=== PATIENT | male | born 1930 | race Caucasian/White ===

== ENCOUNTER 2018-01-25 02:05 | Emergency (ER) | payer MEDICARE, BC ==
--- NOTE | 2018-01-25 02:46 | ED ---
URI HPI - General Chief Complaint: Upper Respiratory Infection Stated Complaint: cough Time Seen by Provider: 01/25/18 02:18 Source: patient, family Mode of arrival: ambulatory Limitations: no limitations - History of Present Illness Initial Comments: 87-year-old male patient presents to the emergency department today for complaints of persistent cough and sore throat. Patient reports his symptoms started approximately 4 days ago and seem to be worsening. States he is coughing up clear sputum. He denies any chest pain or shortness of breath. Denies any fevers or chills. States he has been having some nasal drainage over the last couple of days. Denies any facial pressure or ear pain. Patient denies any recent rash, abdominal pain, nausea, vomiting, diarrhea, constipation , back pain, numbness, tingling, dizziness, weakness, hematuria, dysuria, urinary urgency, urinary frequency, headache, visual changes, or any other complaints. - Related Data Home Medications Medication Instructions Recorded Confirmed Metoprolol Succinate [Toprol XL] 25 mg PO BID 10/04/15 10/05/15 Simvastatin [Zocor] 40 mg PO HS 10/04/15 10/05/15 Aspirin EC [Ecotrin Low Dose] 81 mg PO DAILY 10/05/15 10/05/15 Hydrochlorothiazide [Hydrodiuril] 12.5 mg PO DAILY 10/05/15 10/05/15 Multivit-Min/FA/Lycopen/Lutein 1 tab PO DAILY 10/05/15 10/05/15 [Centrum Silver Tablet] Previous Rx's Medication Instructions Recorded Cefuroxime Axetil [Ceftin] 500 mg PO BID #20 tablet 10/08/15 Ensure 1 can PO BID-W/MEALS liquid 10/08/15 Azithromycin [Zithromax Z-pack] 0 mg PO DIRECTED #6 tab 01/25/18 Promethazine HCl/Codeine 5 ml PO BID #50 ml 01/25/18 [Prometh-Codein 6.25-10 mg/5 ml] Allergies Allergy/AdvReac Type Severity Reaction Status Date / Time No Known Allergies Allergy Verified 01/25/18 02:15 Review of Systems ROS Statement: Those systems with pertinent positive or pertinent negative responses have been documented in the HPI. ROS Other: All systems not noted in ROS Statement are negative. Past Medical History Past Medical History: Hyperlipidemia, Hypertension, Osteoarthritis (OA), Prostate Disorder Additional Past Medical History / Comment(s): straight cath's self 3-4 times a day for last 8 months secondary to urethral stricture. History of Any Multi-Drug Resistant Organisms: None Reported Past Surgical History: Unable to Obtain, Hernia Repair Additional Past Surgical History / Comment(s): Per Patient had surgery to widen urethra r/t inability to urinate, throat hernia repair, bilateral carotid surgery, colonoscopy about 4 years ago. Past Anesthesia/Blood Transfusion Reactions: No Reported Reaction Past Psychological History: No Psychological Hx Reported Smoking Status: Former smoker Past Alcohol Use History: Rare Past Drug Use History: None Reported - Past Family History Father Family Medical History: No Reported History (Father at age of 85 from old age) Mother Family Medical History: No Reported History (Mother at age of 91 from old age) Brother(s) Family Medical History: Coronary Artery Disease (CAD) (Patient has one brother with coronary artery bypass graft 2) Sister(s) Family Medical History: No Reported History (Patient has 2 sisters no major medical problems) General Exam Limitations: no limitations General appearance: alert, in no apparent distress, other (This is a well- developed, well-nourished elderly male patient in no acute distress. Vital signs upon presentation are temperature 98.5F, pulse 91, respirations 18, blood pressure 135/65, pulse ox 95% on room air.) Eye exam: Present: normal appearance, PERRL, EOMI. Absent: scleral icterus, conjunctival injection, periorbital swelling ENT exam: Present: normal exam, normal oropharynx, mucous membranes moist, TM's normal bilaterally Neck exam: Present: normal inspection. Absent: tenderness, meningismus, lymphadenopathy Respiratory exam: Present: normal lung sounds bilaterally, other (Cough noted during exam. No respiratory distress. No accessory muscle use.). Absent: respiratory distress, wheezes, rales, rhonchi, stridor Cardiovascular Exam: Present: regular rate, normal rhythm, normal heart sounds. Absent: systolic murmur, diastolic murmur, rubs, gallop, clicks GI/Abdominal exam: Present: soft, normal bowel sounds. Absent: distended, tenderness, guarding, rebound, rigid Neurological exam: Present: alert, oriented X3, CN II-XII intact Psychiatric exam: Present: normal affect, normal mood Skin exam: Present: warm, dry, intact, normal color. Absent: rash Course Vital Signs 01/25/18 01/25/18 02:11 02:27 Temperature 98.5 F Pulse Rate 91 Respiratory 18 17 Rate Blood Pressure 135/65 O2 Sat by Pulse 95 Oximetry Medical Decision Making - Medical Decision Making 87 year-old male patient presented to the emergency department today for evaluation of cough and sore throat. Physical examination is unremarkable. Lungs are clear to auscultation with good air movement. Patient exhibits no evidence of respiratory distress. Chest x-ray shows no acute cardiopulmonary process. Patient will be started on azithromycin for acute bronchitis and given cough medication promethazine with codeine. He is instructed to follow- up with his primary care physician for recheck in 1-2 days. Instructed to return here immediately for any new, worsening, or concerning symptoms. He verbalizes understanding and agrees with this plan. - Radiology Data Radiology results: report reviewed, image reviewed Two-view x-ray of the chest shows a heart is normal. Lungs are clear consolidation. There is no pleural effusion. Thoracic aorta is atheromatous. Heart size is normal. Bony thorax is intact. Impression by Dr. Mcclelland shows no active cardiopulmonary disease. There is clearing of small left pleural effusion compared to old exam. Disposition Clinical Impression: Acute bronchitis, Upper respiratory infection Disposition: HOME SELF-CARE Condition: Good Instructions: Upper Respiratory Infection (ED), Acute Bronchitis (ED) Additional Instructions: Take medications as directed. Follow-up with your primary care physician for a recheck in 1-2 days. Return here immediately for any new, worsening, or concerning symptoms. Prescriptions: Azithromycin [Zithromax Z-pack] 0 mg PO DIRECTED #6 tab Promethazine HCl/Codeine [Prometh-Codein 6.25-10 mg/5 ml] 5 ml PO BID #50 ml Referrals: Yon Kruger DO [Primary Care Provider] - 1-2 days Time of Disposition: 03:16
--- NOTE | 2018-01-25 03:03 | XR ---
EXAMINATION TYPE: XR chest 2V DATE OF EXAM: 01/25/2018 COMPARISON: NONE HISTORY: Chest pain TECHNIQUE: Frontal and lateral views of the chest are obtained. FINDINGS: Heart is normal. Lungs are clear of consolidation. There is no pleural effusion. Thoracic aorta is atheromatous. Heart size is normal. Bony thorax is intact. IMPRESSION: No active cardiopulmonary disease. There is clearing of small left pleural effusion comp ared to old exam.
[2018-01-25] MEDS ORDERED: PROMETHAZINE 6.25MG/5ML 147.5 MG/118 ML BOTTLE PO STA (03:13)
[2018-01-25] MEDS ORDERED: PROMETHAZ-COD 6.25-10 MG/5 ML 5 ML CUP PO STA (03:13)
[2018-01-25] MEDS ORDERED: AZITHROMYCIN 500 MG TAB PO STA (03:14)
[2018-01-25 03:21] VITALS: BP 155/71; PULSE 71; RESP 18; TEMP 97.8
== END 2018-01-25 03:23 | disposition home or self-care (01) ==
LOC: EC 02:05
DX: J20.9 Acute bronchitis, unspecified (principal); J06.9 Acute upper respiratory infection, unspecified; J90 Pleural effusion, not elsewhere classified; I70.0 Atherosclerosis of aorta; E78.5 Hyperlipidemia, unspecified; I10 Essential (primary) hypertension; M19.90 Unspecified osteoarthritis, unspecified site; Z87.891 Personal history of nicotine dependence; Z79.82 Long term (current) use of aspirin; Z79.899 Other long term (current) drug therapy
CPT/HCPCS: 71046; 99283

== ENCOUNTER 2020-07-30 02:18 | Observation (INO) | payer MEDICARE, BC ==
[2020-07-30] MEDS ORDERED: SODIUM CHLORIDE 0.9% 1,000 ML IV STA ×2 (02:44)
--- NOTE | 2020-07-30 02:50 | ED ---
General Adult HPI - General Source: patient, family, RN notes reviewed, old records reviewed Mode of arrival: wheelchair Limitations: no limitations <Yari Randall - Last Filed: 07/30/20 03:47> <Sidney Hilario - Last Filed: 07/30/20 04:39> - General Chief complaint: Dizziness Stated complaint: weakness Time Seen by Provider: 07/30/20 02:34 - History of Present Illness Initial comments: This Patient is a pleasant 89-year-old male who presents to the emergency department today with his for concern for weakness, some inability to stand and feeling fatigued. Patient reports that he had a TURP procedure yesterday by Dr. Ahmadi. He was started on antibiotic during this. Patient reports that he attempted to go to the bathroom due to straight cath himself this morning and almost passed out and was weak and his had helped him stand up. Patient states that he is having no chest pain or shortness of breath. He denies any back or abdominal pain. Patient states he's had no change in bowel habits. He denies room spinning or headache. (Yari Randall) - Related Data Home Medications Medication Instructions Recorded Confirmed Metoprolol Succinate [Toprol XL] 25 mg PO BID 10/04/15 10/05/15 Simvastatin [Zocor] 40 mg PO HS 10/04/15 10/05/15 Aspirin EC [Ecotrin Low Dose] 81 mg PO DAILY 10/05/15 10/05/15 Multivit-Min/FA/Lycopen/Lutein 1 tab PO DAILY 10/05/15 10/05/15 [Centrum Silver Tablet] hydroCHLOROthiazide [Hydrodiuril] 12.5 mg PO DAILY 10/05/15 10/05/15 Previous Rx's Medication Instructions Recorded Cefuroxime Axetil [Ceftin] 500 mg PO BID #20 tablet 10/08/15 Ensure 1 can PO BID-W/MEALS liquid 10/08/15 Azithromycin [Zithromax Z-pack] 0 mg PO DIRECTED #6 tab 01/25/18 Promethazine HCl/Codeine 5 ml PO BID #50 ml 01/25/18 [Prometh-Codein 6.25-10 mg/5 ml] Allergies Allergy/AdvReac Type Severity Reaction Status Date / Time No Known Allergies Allergy Verified 07/30/20 02:27 Review of Systems ROS Other: All systems not noted in ROS Statement are negative. <Yari Randall - Last Filed: 07/30/20 03:47> ROS Other: All systems not noted in ROS Statement are negative. <Sidney Hilario - Last Filed: 07/30/20 04:39> ROS Statement: Those systems with pertinent positive or pertinent negative responses have been documented in the HPI. Past Medical History Past Medical History: Hyperlipidemia, Hypertension, Osteoarthritis (OA), Prostate Disorder Additional Past Medical History / Comment(s): straight cath's self 3-4 times a day for last 8 months secondary to urethral stricture. History of Any Multi-Drug Resistant Organisms: None Reported Past Surgical History: Unable to Obtain, Hernia Repair Additional Past Surgical History / Comment(s): Per Patient had surgery to widen urethra r/t inability to urinate, throat hernia repair, bilateral carotid surgery, colonoscopy about 4 years ago. Past Anesthesia/Blood Transfusion Reactions: No Reported Reaction Past Psychological History: No Psychological Hx Reported Smoking Status: Never smoker Past Alcohol Use History: Rare Past Drug Use History: None Reported - Past Family History Father Family Medical History: No Reported History (Father at age of 85 from old age) Mother Family Medical History: No Reported History (Mother at age of 91 from old age) Brother(s) Family Medical History: Coronary Artery Disease (CAD) (Patient has one brother with coronary artery bypass graft 2) Sister(s) Family Medical History: No Reported History (Patient has 2 sisters no major medical problems) <Yari Randall - Last Filed: 07/30/20 03:47> General Exam Limitations: no limitations General appearance: alert, in no apparent distress Head exam: Present: atraumatic, normocephalic, normal inspection Eye exam: Present: normal appearance, PERRL, EOMI. Absent: scleral icterus, conjunctival injection, periorbital swelling ENT exam: Present: normal exam, mucous membranes moist Neck exam: Present: normal inspection. Absent: tenderness, meningismus, lymphadenopathy Respiratory exam: Present: normal lung sounds bilaterally. Absent: respiratory distress, wheezes, rales, rhonchi, stridor Cardiovascular Exam: Present: regular rate, normal rhythm, normal heart sounds. Absent: systolic murmur, diastolic murmur, rubs, gallop, clicks GI/Abdominal exam: Present: soft, normal bowel sounds. Absent: distended, tenderness, guarding, rebound, rigid Extremities exam: Present: normal inspection, full ROM, normal capillary refill. Absent: tenderness, pedal edema, joint swelling, calf tenderness Back exam: Present: normal inspection Neurological exam: Present: alert, oriented X3, CN II-XII intact Psychiatric exam: Present: normal affect, normal mood Skin exam: Present: warm, dry, intact, normal color. Absent: rash <Yari Randall - Last Filed: 07/30/20 03:47> - General Exam Comments Initial Comments: Patient is a pleasant 89-year-old male. Alert and oriented 3. at bedside. Appears in no acute distress. (Yari Randall) Course Vital Signs 07/30/20 02:21 Temperature 99.3 F Pulse Rate 94 Respiratory 18 Rate Blood Pressure 156/72 O2 Sat by Pulse 96 Oximetry Medical Decision Making - Lab Data Result diagrams: 07/30/20 02:53 07/30/20 02:53 - Radiology Data Radiology results: report reviewed <Yari Randall - Last Filed: 07/30/20 03:47> - Lab Data Result diagrams: 07/30/20 02:53 07/30/20 02:53 <Sidney Hilario - Last Filed: 07/30/20 04:39> - Medical Decision Making 89-year-old male presents to the ER today for concerns for weakness, his legs giving out on him. He is one-day post TURP procedure. Patient has no acute complaints of pain at this time. Lab work is pending. Discussed case with Dr. Hilario, whom is finishing care. (Yari Randall) I saw this patient in conjunction with the physician commercial lines assistant. I performed independent history and physical exam. Agree with case management. (Sidney Hilario) - Lab Data Lab Results 07/30/20 07/30/20 07/30/20 Range/Units 02:53 02:53 02:53 WBC 7.9 (3.8-10.6) k/uL RBC 4.16 L (4.30-5.90) m/uL Hgb 12.3 L (13.0-17.5) gm/dL Hct 37.8 L (39.0-53.0) % MCV 90.7 D (80.0-100.0) fL MCH 29.6 (25.0-35.0) pg MCHC 32.6 (31.0-37.0) g/dL RDW 13.5 (11.5-15.5) % Plt Count 214 (150-450) k/uL Neutrophils % 86 % Lymphocytes % 6 % Monocytes % 6 % Eosinophils % 0 % Basophils % 0 % Neutrophils # 6.8 (1.3-7.7) k/uL Lymphocytes # 0.5 L (1.0-4.8) k/uL Monocytes # 0.5 (0-1.0) k/uL Eosinophils # 0.0 (0-0.7) k/uL Basophils # 0.0 (0-0.2) k/uL PT 10.2 (9.0-12.0) sec INR 1.0 (<1.2) APTT 24.2 (22.0-30.0) sec Sodium (137-145) mmol/L Potassium (3.5-5.1) mmol/L Chloride (98-107) mmol/L Carbon Dioxide (22-30) mmol/L Anion Gap mmol/L BUN (9-20) mg/dL Creatinine (0.66-1.25) mg/dL Est GFR (CKD-EPI)AfAm (>60 ml/min/1.73 sqM) Est GFR (CKD-EPI)NonAf (>60 ml/min/1.73 sqM) Glucose (74-99) mg/dL Plasma Lactic Acid Pa (0.7-2.0) mmol/L Calcium (8.4-10.2) mg/dL Magnesium (1.6-2.3) mg/dL Total Bilirubin (0.2-1.3) mg/dL AST (17-59) U/L ALT (4-49) U/L Alkaline Phosphatase (38-126) U/L Troponin I (0.000-0.034) ng/mL Total Protein (6.3-8.2) g/dL Albumin (3.5-5.0) g/dL Urine Color Yellow Urine Appearance Turbid (Clear) Urine pH 6.0 (5.0-8.0) Ur Specific Addison 1.023 (1.001-1.035) Urine Protein 2+ H (Negative) Urine Glucose (UA) Negative (Negative) Urine Ketones 1+ H (Negative) Urine Blood Moderate H (Negative) Urine Nitrite Negative (Negative) Urine Bilirubin Negative (Negative) Urine Urobilinogen <2.0 (<2.0) mg/dL Ur Leukocyte Esterase Large H (Negative) Urine RBC 111 H (0-5) /hpf Urine WBC >182 H (0-5) /hpf Urine WBC Clumps Many H (None) /hpf Ur Squamous Epith Cells 1 (0-4) /hpf Urine Mucus Rare H (None) /hpf 07/30/20 07/30/20 07/30/20 Range/Units 02:53 02:53 02:53 WBC (3.8-10.6) k/uL RBC (4.30-5.90) m/uL Hgb (13.0-17.5) gm/dL Hct (39.0-53.0) % MCV (80.0-100.0) fL MCH (25.0-35.0) pg MCHC (31.0-37.0) g/dL RDW (11.5-15.5) % Plt Count (150-450) k/uL Neutrophils % % Lymphocytes % % Monocytes % % Eosinophils % % Basophils % % Neutrophils # (1.3-7.7) k/uL Lymphocytes # (1.0-4.8) k/uL Monocytes # (0-1.0) k/uL Eosinophils # (0-0.7) k/uL Basophils # (0-0.2) k/uL PT (9.0-12.0) sec INR (<1.2) APTT (22.0-30.0) sec Sodium 135 L (137-145) mmol/L Potassium 3.3 L (3.5-5.1) mmol/L Chloride 97 L (98-107) mmol/L Carbon Dioxide 32 H (22-30) mmol/L Anion Gap 6 mmol/L BUN 20 (9-20) mg/dL Creatinine 0.90 (0.66-1.25) mg/dL Est GFR (CKD-EPI)AfAm 88 (>60 ml/min/1.73 sqM) Est GFR (CKD-EPI)NonAf 76 (>60 ml/min/1.73 sqM) Glucose 154 H (74-99) mg/dL Plasma Lactic Acid Pa 1.3 (0.7-2.0) mmol/L Calcium 8.3 L (8.4-10.2) mg/dL Magnesium 1.8 (1.6-2.3) mg/dL Total Bilirubin 0.6 (0.2-1.3) mg/dL AST 19 (17-59) U/L ALT 9 (4-49) U/L Alkaline Phosphatase 74 (38-126) U/L Troponin I <0.012 (0.000-0.034) ng/mL Total Protein 6.8 (6.3-8.2) g/dL Albumin 3.6 (3.5-5.0) g/dL Urine Color Urine Appearance (Clear) Urine pH (5.0-8.0) Ur Specific Addison (1.001-1.035) Urine Protein (Negative) Urine Glucose (UA) (Negative) Urine Ketones (Negative) Urine Blood (Negative) Urine Nitrite (Negative) Urine Bilirubin (Negative) Urine Urobilinogen (<2.0) mg/dL Ur Leukocyte Esterase (Negative) Urine RBC (0-5) /hpf Urine WBC (0-5) /hpf Urine WBC Clumps (None) /hpf Ur Squamous Epith Cells (0-4) /hpf Urine Mucus (None) /hpf 07/30/20 03:24 EKG shows sinus rhythm normal EKG. Ventricular rate of 92 bpm. Intervals 184 ms. QRS duration is 86 most seconds. QT QTc is 344/425 ms. (Yari Randall) - Radiology Data Minimal subsegmental atelectasis compared old exam. Normal heart. (Yari Randall) Disposition <Yari Randall - Last Filed: 07/30/20 03:47> <Sidney Hilario - Last Filed: 07/30/20 04:39> Clinical Impression: UTI (urinary tract infection), Generalized weakness Disposition: ADMITTED IP TO THIS [facility] Condition: Fair Referrals: Yon Kruger DO [Primary Care Provider] - 1-2 days
[2020-07-30 03:20] LABS: Basophils % (A) 0 %; Eosinophils % (A) 0 %; HCT 37.8 % (39.0-53.0); HGB 12.3 gm/dL (13.0-17.5); Lymphocytes # (A) 0.5 k/uL (1.0-4.8); Lymphocytes % (A) 6 %; MCH 29.6 pg (25.0-35.0); MCHC 32.6 g/dL (31.0-37.0); Mean Platelet Volume 7.1; Monocytes # (A) 0.5 k/uL (0-1.0); Monocytes % (A) 6 %; Neutrophils # (A) 6.8 k/uL (1.3-7.7); Neutrophils % (A) 86 %; Platelet Count 214 k/uL (150-450); RBC 4.16 m/uL (4.30-5.90); RDW 13.5 % (11.5-15.5); WBC 7.9 k/uL (3.8-10.6)
[2020-07-30 03:23] LABS: MCV 90.7 fL (80.0-100.0)
[2020-07-30 03:25] LABS: Albumin 3.6 g/dL (3.5-5.0); Calcium 8.3 mg/dL (8.4-10.2); Magnesium 1.8 mg/dL (1.6-2.3); Potassium 3.3 mmol/L (3.5-5.1); Total Bilirubin 0.6 mg/dL (0.2-1.3); Total Protein 6.8 g/dL (6.3-8.2)
--- NOTE | 2020-07-30 03:25 | XR ---
EXAMINATION TYPE: XR chest 2V DATE OF EXAM: 07/30/2020 COMPARISON: 01/25/2018 HISTORY: Weakness TECHNIQUE: 2 views FINDINGS: There is some mild linear density at the lung bases consistent with minimal subsegmental at electasis. There is no pulmonary mass. Heart size is normal. There is no heart failure. There are no hilar masses. There are chest leads. IMPRESSION: Minimal subsegmental atelectasis appears new compared to old exam. Normal heart.
[2020-07-30 03:42] LABS: Partial Thromboplastin Time 24.2 sec (22.0-30.0); Prothrombin Time 10.2 sec (9.0-12.0)
[2020-07-30 04:12] LABS: Appearance,Urine Turbid (Clear); Bilirubin,Urine Negative (Negative); Blood,Urine Moderate (Negative); Color,Urine Yellow; Glucose,Urine (UA) Negative (Negative); Ketones,Urine 1+ (Negative); Leukocyte Esterase,Urine Large (Negative); Mucus,Urine Rare /hpf; Nitrite,Urine Negative (Negative); Protein,Urine 2+ (Negative); RBC,Urine 111 /hpf (0-5); Specific Gravity,Urine 1.023 (1.001-1.035); Squamous Epithelial Cell,Urine 1 /hpf (0-4); Urobilinogen,Urine <2.0 mg/dL (<2.0); WBC,Urine >182 /hpf (0-5)
[2020-07-30] MEDS ORDERED: NALOXONE 0.4 MG/ML 1 ML VIAL IV PRN (04:30)
[2020-07-30] MEDS ORDERED: LEVOFLOXACIN 750MG-D5W PMX 750 MG in DEXTROSE/WATER 1 150ML.BAG IVPB STA (04:37)
[2020-07-30] MEDS ORDERED: POTASSIUM CHLORIDE ER 20 MEQ TAB.ER PO STA (04:39)
[2020-07-30] MEDS: SODIUM CHLORIDE 0.9% 1,000 ML IV SCH ×2 (04:54→16:42)
[2020-07-30] MEDS: ACETAMINOPHEN TAB 325 MG TAB PO PRN (04:56)
[2020-07-30] MEDS ORDERED: ENSURE PO SCH (07:30)
[2020-07-30] MEDS: ASPIRIN 81 MG PO SCH (08:53)
[2020-07-30] MEDS: METOPROLOL SUCCINATE (ER) 25 MG TAB.ER.24H PO SCH ×2 (08:53→21:25)
[2020-07-30] MEDS: hydroCHLOROthiazide 12.5 MG CAP PO SCH (08:55)
[2020-07-30] MEDS ORDERED: hydroCHLOROthiazide 25 MG TAB PO SCH (09:00)
[2020-07-30] MEDS ORDERED: ONDANSETRON ODT 4 MG TAB PO PRN (12:01)
[2020-07-30] MEDS ORDERED: Potassium Replacement Protocol 1 EACH MISC MISCELLANE PRN (12:04)
[2020-07-30] MEDS ORDERED: Magnesium Replacement Protocol 1 EACH MISC MISCELLANE PRN (12:04)
[2020-07-30] MEDS ORDERED: PANTOPRAZOLE 40 MG/10 ML VIAL IVP SCH (12:15)
[2020-07-30] MEDS ORDERED: METOPROLOL SUCCINATE (ER) 50 MG TAB.ER.24H PO SCH (12:15)
--- NOTE | 2020-07-30 13:05 | P.HPIM ---
History of Present Illness H&P Date: 07/30/20 Chief Complaint: Weakness, hematuria This is an 89-year-old gentleman, recently underwent TURP procedure with Dr. Teresa, presented to the ER with near syncope, increased weakness, hematuria. Patient has been on antibiotics since urology procedure. Patient straight caths himself 3-4 times daily. Denies change in bowel habits. Denies nausea, vomiting, abdominal pain . Denies chills or fever .Denies chest pain, palpitations or shortness of breath. Denies lightheadedness, dizziness or focal deficits. Hemoglobin 12.3, baseline 13. Sodium 135, potassium 3.3, chloride 97, carbon dioxide 32, BUN 20, creatinine 0.9, magnesium 1.8, lactic acid 1.3. Troponin negative 1. UA reported urine WBC 182, leukocytes large, negative nitrates, moderate blood, 1+ ketones, 2+ protein. Urine culture pending. T-max 100.6.VSS, maintaining O2 sats in the high 90s on 2 L nasal cannula. Chest x- ray reporting new minimal subsegmental atelectasis. EKG reporting normal sinus rhythm. Review of Systems ROS Statement: Those systems with pertinent positive or pertinent negative responses have been documented in the HPI. ROS Other: All systems not noted in ROS Statement are negative. Past Medical History Past Medical History: Hyperlipidemia, Hypertension, Osteoarthritis (OA), Prostate Disorder, Thyroid Disorder Additional Past Medical History / Comment(s): straight cath's self 3-4 times a day for last 3-4 years secondary to urethral stricture. History of Any Multi-Drug Resistant Organisms: None Reported Past Surgical History: Unable to Obtain, Hernia Repair Additional Past Surgical History / Comment(s): Per Patient had surgery to widen urethra r/t inability to urinate. the following surgeries were from the previous documented history from 2014, but the patient denies: throat hernia repair, bilateral carotid surgery, colonoscopy Past Anesthesia/Blood Transfusion Reactions: No Reported Reaction Past Psychological History: No Psychological Hx Reported Smoking Status: Former smoker Past Alcohol Use History: Rare Past Drug Use History: None Reported - Past Family History Father Family Medical History: No Reported History Mother Family Medical History: No Reported History Brother(s) Family Medical History: Coronary Artery Disease (CAD) Sister(s) Family Medical History: No Reported History Medications and Allergies Home Medications Medication Instructions Recorded Confirmed Type Aspirin EC [Ecotrin Low Dose] 81 mg PO DAILY 10/05/15 07/30/20 History hydroCHLOROthiazide [Hydrodiuril] 12.5 mg PO DAILY 10/05/15 07/30/20 History Cyanocobalamin [Vitamin B-12] 500 mcg PO DAILY 07/30/20 07/30/20 History Levothyroxine Sodium [Synthroid] 50 mcg PO DAILY 07/30/20 07/30/20 History Metoprolol Succinate [Toprol XL] 25 mg PO BID 07/30/20 07/30/20 History Ondansetron Odt [Zofran Odt] 4 mg PO Q6H PRN 07/30/20 07/30/20 History Simvastatin [Zocor] 40 mg PO HS 07/30/20 07/30/20 History Sulfamethox-Tmp 800-160Mg [Bactrim 1 tab PO Q12HR 07/30/20 07/30/20 History DS 800-160 mg] Vit C/E/Zn/Coppr/Lutein/Zeaxan 1 cap PO BID 07/30/20 07/30/20 History [Preservision Areds 2 Softgel] Allergies Allergy/AdvReac Type Severity Reaction Status Date / Time No Known Allergies Allergy Verified 07/30/20 09:35 Physical Exam Vitals: Vital Signs Temp Pulse Pulse Resp BP BP Pulse Ox 07/30/20 08:39 99.6 F 78 18 115/68 97 07/30/20 05:51 98.7 F 77 18 106/62 97 07/30/20 04:58 97 07/30/20 04:38 100.6 F H 85 18 150/77 91 L 07/30/20 02:21 99.3 F 94 18 156/72 96 Intake and Output 07/29/20 07/30/20 07/30/20 22:59 06:59 14:59 Other: Voiding Method Self-Catheterization Self-Catheterization # Voids 0 Weight 70.307 kg PHYSICAL EXAM: VITAL SIGNS: As above GENERAL: Sitting up in bed, no acute distress HEENT: Conjunctivae normal. eyes normal. Oral mucosa moist NECK: No JVD. No thyroid enlargement. No LNs CARDIOVASCULAR: S1, S2 regular.. No murmur RESPIRATION: Breath sounds diminished in the bases. No rhonchi or crackles. No bronchial breathing. ABDOMEN: Soft, nontender . No guarding. no masses palpable. No ascites, No hepatosplenomegaly.Bowel sounds heard. LEGS: No edema. no swelling PSYCHIATRY: Alert and oriented X3, mood and affect normal. NERVOUS SYSTEM: Cranial N 2-12 grossly normal. Moves all 4 limbs. Diffuse weakness, No focal deficits. Strength and sensation grossly intact.. Skin: Warm and dry, no rash Lymphatic system. No LN neck axilla or groin. Results CBC & Chem 7: 07/30/20 02:53 07/30/20 02:53 Labs: Abnormal Lab Results - Last 24 Hours (Table) 07/30/20 07/30/20 07/30/20 Range/Units 02:53 02:53 02:53 RBC 4.16 L (4.30-5.90) m/uL Hgb 12.3 L (13.0-17.5) gm/dL Hct 37.8 L (39.0-53.0) % Lymphocytes # 0.5 L (1.0-4.8) k/uL Sodium 135 L (137-145) mmol/L Potassium 3.3 L (3.5-5.1) mmol/L Chloride 97 L (98-107) mmol/L Carbon Dioxide 32 H (22-30) mmol/L Glucose 154 H (74-99) mg/dL Calcium 8.3 L (8.4-10.2) mg/dL Urine Protein 2+ H (Negative) Urine Ketones 1+ H (Negative) Urine Blood Moderate H (Negative) Ur Leukocyte Esterase Large H (Negative) Urine RBC 111 H (0-5) /hpf Urine WBC >182 H (0-5) /hpf Urine WBC Clumps Many H (None) /hpf Urine Mucus Rare H (None) /hpf Microbiology - Last 24 Hours (Table) 07/30/20 02:53 Urine Culture - Preliminary Urine,Clean Catch Thrombosis Risk Factor Assmnt - Choose All That Apply Each Factor Represents 1 point: Swollen legs (current) Other Risk Factors: Yes Each Risk Factor Represents 3 Points: Age 75 years or older Other congenital or acquired thrombophilia - If yes, enter type in comment: No Thrombosis Risk Factor Assessment Total Risk Factor Score: 4 Thrombosis Risk Factor Assessment Level: Moderate Risk Assessment and Plan Assessment: Acute UTI with hematuria status post recent TURP, on antibiotics OP in a patient with history of urethral stricture, possibly related to self cathing, present on admission. Generalized weakness secondary to the above Hypoxic respiratory failure secondary to the above New minimal subsegmental atelectasis Hypokalemia Hypomagnesemia Chronic anemia of chronic kidney disease, stage II Hypertension Hyperlipidemia Hypothyroidism Plan: Continue on current medication regime ,monitoring and symptomatic treatment. IV fluid hydration, IV antibiotics. Cultures pending. PPI for GI prophylaxis. Compression stockings for DVT prophylaxis. Aggressive pulmonary toileting with incentive spirometer ordered. Urology consult in place with recommendations pending. The impression and plan of care has been dictated as directed. : I performed a history and examination of this patient, discussed the same with the dictator. I agree with the dictator's note ,documented as a scribe. Any additional findings or plans will be noted.
[2020-07-30] MEDS: LEVOTHYROXINE 50 MCG TAB PO SCH (13:51)
[2020-07-30 19:52] VITALS: RESP 16
[2020-07-30] MEDS ORDERED: NON FORMULARY DRUG (Simvastatin [Zocor] 80 MG Tablet) PO SCH (21:00)
[2020-07-30] MEDS ORDERED: ATORVASTATIN 20 MG TAB PO SCH (21:00)
[2020-07-30] MEDS: VIT A,C & E-LUTEIN-MINERALS 1 EACH TAB PO SCH (21:25)
[2020-07-31] MEDS: SODIUM CHLORIDE 0.9% 1,000 ML IV SCH ×2 (01:35→13:36)
[2020-07-31] MEDS ORDERED: LEVOFLOXACIN 750MG-D5W PMX 750 MG in DEXTROSE/WATER 1 150ML.BAG IVPB SCH (04:00)
[2020-07-31] MEDS: ACETAMINOPHEN TAB 325 MG TAB PO PRN (04:45)
[2020-07-31 05:47] LABS: Basophils % (A) 0 %; Eosinophils # (A) 0.1 k/uL (0-0.7); Eosinophils % (A) 1 %; HCT 32.8 % (39.0-53.0); HGB 10.7 gm/dL (13.0-17.5); Lymphocytes # (A) 0.5 k/uL (1.0-4.8); Lymphocytes % (A) 9 %; MCH 29.6 pg (25.0-35.0); MCHC 32.6 g/dL (31.0-37.0); MCV 90.8 fL (80.0-100.0); Monocytes # (A) 0.4 k/uL (0-1.0); Monocytes % (A) 7 %; Neutrophils # (A) 3.9 k/uL (1.3-7.7); Neutrophils % (A) 79 %; Platelet Count 170 k/uL (150-450); RBC 3.61 m/uL (4.30-5.90); RDW 13.4 % (11.5-15.5)
[2020-07-31] MEDS: LEVOTHYROXINE 50 MCG TAB PO SCH (05:55)
[2020-07-31 06:04] LABS: African American GFR (CKD) >90 (>60 ml/min/1.73 sqM); Anion Gap 3 mmol/L; Blood Urea Nitrogen 11 mg/dL (9-20); Calcium 7.7 mg/dL (8.4-10.2); Carbon Dioxide 29 mmol/L (22-30); Chloride 101 mmol/L (98-107); Glucose 122 mg/dL (74-99); Magnesium 1.6 mg/dL (1.6-2.3); Non-African American GFR(CKD) 90 (>60 ml/min/1.73 sqM); Potassium 3.5 mmol/L (3.5-5.1); Sodium 133 mmol/L (137-145)
[2020-07-31] MEDS ORDERED: PANTOPRAZOLE 40 MG TABLET PO SCH (07:30)
[2020-07-31] MEDS: ASPIRIN 81 MG PO SCH (08:36)
[2020-07-31] MEDS: METOPROLOL SUCCINATE (ER) 25 MG TAB.ER.24H PO SCH (08:36)
[2020-07-31] MEDS: VIT A,C & E-LUTEIN-MINERALS 1 EACH TAB PO SCH (08:36)
[2020-07-31] MEDS: hydroCHLOROthiazide 12.5 MG CAP PO SCH (08:37)
[2020-07-31] MEDS ORDERED: CYANOCOBALAMIN 500 MCG TAB PO SCH (09:00)
--- NOTE | 2020-07-31 13:39 | P.DS ---
Providers Date of admission: 07/30/20 04:30 Attending physician: Yon Kruger Consults: 07/30/20 04:31 Consult Physician Routine Consulting Provider: Otoniel Teresa Consult Reason/Comments: Your patient Do you want consulting provider notified?: Yes Primary care physician: Yon Kruger Hospital Course: Patient is admitted for generalized weakness, hematuria, fever patient was treated for urinary tract infection neurology evaluated the patient for further recommendations for them patient will be followed by urology as an outpatient. They cleared him for discharge. Patient is also hyponatremic secondary to hydrochlorothiazide patient blood pressure was extremely low on admission. Isn't labored elevated because of IV fluids. Because of hyponatremia patient is not a good candidate for hydrochlorothiazide patient may benefit from Norvasc if needed as an outpatient as of now patient is on very low-dose of hydrochlorothiazide which will be discontinued. Unfortunately patient was not evaluated by PT and OT, although upon brief for evaluation patient doesn't appear to need subacute rehabilitation patient will be arranged for home care and home rehabilitation along with a walker rather than a cane. PHYSICAL EXAMINATION: GENERAL: The patient is alert and oriented x3, not in any acute distress. Well developed, well nourished. HEENT: Pupils are round and equally reacting to light. EOMI. No scleral icterus. No conjunctival pallor. Normocephalic, atraumatic. No pharyngeal erythema. No thyromegaly. CARDIOVASCULAR: S1 and S2 present. No murmurs, rubs, or gallops. PULMONARY: Chest is clear to auscultation, no wheezing or crackles. ABDOMEN: Soft, nontender, nondistended, normoactive bowel sounds. No palpable organomegaly. MUSCULOSKELETAL: No joint swelling or deformity. EXTREMITIES: No cyanosis, clubbing, or pedal edema. NEUROLOGICAL: Gross neurological examination did not reveal any focal deficits. SKIN: No rashes. For rest of the medical problems and has physician course please refer to Dr. Kruger dictation for further details Patient Condition at Discharge: Fair Plan - Discharge Summary Discharge Rx Participant: No New Discharge Prescriptions: Discontinued hydroCHLOROthiazide [Hydrodiuril] 12.5 mg PO DAILY Sulfamethox-Tmp 800-160Mg [Bactrim DS 800-160 mg] 1 tab PO Q12HR No Action Aspirin EC [Ecotrin Low Dose] 81 mg PO DAILY Vit C/E/Zn/Coppr/Lutein/Zeaxan [Preservision Areds 2 Softgel] 1 cap PO BID Levothyroxine Sodium [Synthroid] 50 mcg PO DAILY Cyanocobalamin [Vitamin B-12] 500 mcg PO DAILY Metoprolol Succinate [Toprol XL] 25 mg PO BID Simvastatin [Zocor] 40 mg PO HS Ondansetron Odt [Zofran Odt] 4 mg PO Q6H PRN PRN Reason: Nausea Discharge Medication List Aspirin EC [Ecotrin Low Dose] 81 mg PO DAILY 10/05/15 [History] Cyanocobalamin [Vitamin B-12] 500 mcg PO DAILY 07/30/20 [History] Levothyroxine Sodium [Synthroid] 50 mcg PO DAILY 07/30/20 [History] Metoprolol Succinate [Toprol XL] 25 mg PO BID 07/30/20 [History] Ondansetron Odt [Zofran Odt] 4 mg PO Q6H PRN 07/30/20 [History] Simvastatin [Zocor] 40 mg PO HS 07/30/20 [History] Vit C/E/Zn/Coppr/Lutein/Zeaxan [Preservision Areds 2 Softgel] 1 cap PO BID 07/30/20 [History] Follow up Appointment(s)/Referral(s): Otoniel Teresa MD [STAFF PHYSICIAN] - 1 Week Yon Kruger DO [Primary Care Provider] - 3 Days Discharge Disposition: HOME SELF-CARE
[2020-07-31 15:04] VITALS: BP 141/65; PULSE 69; TEMP 98.1
== END 2020-07-31 15:31 | disposition home health service (06) ==
LOC: SUPCPDRO 02:18 → EC 02:18 → 1SOBS 04:30
PROVIDERS: ADMIT Family Medicine; ATTEND Family Medicine
DX: N39.0 Urinary tract infection, site not specified (principal); R31.9 Hematuria, unspecified; N35.919 Unspecified urethral stricture, male, unspecified site; J96.91 Respiratory failure, unspecified with hypoxia; E87.6 Hypokalemia; E83.42 Hypomagnesemia; N18.2 Chronic kidney disease, stage 2 (mild); I12.9 Hypertensive chronic kidney disease with stage 1 through stage 4 chronic kidney disease, or unspecified chronic kidney disease; D63.1 Anemia in chronic kidney disease; E03.9 Hypothyroidism, unspecified; E87.1 Hypo-osmolality and hyponatremia; T50.2X5A Adverse effect of carbonic-anhydrase inhibitors, benzothiadiazides and other diuretics, initial encounter; E78.5 Hyperlipidemia, unspecified; M19.90 Unspecified osteoarthritis, unspecified site; R55 Syncope and collapse; Z79.899 Other long term (current) drug therapy; Z79.82 Long term (current) use of aspirin; Z87.891 Personal history of nicotine dependence; Z79.890 Hormone replacement therapy; M79.89 Other specified soft tissue disorders; Z79.2 Long term (current) use of antibiotics; Z82.49 Family history of ischemic heart disease and other diseases of the circulatory system
CPT/HCPCS: 96361 ×2; 96366; 96365; 99285; 51702; 36415; 93005; 80053; 80048; 83605; 83735 ×2; 84484; 85025 ×2; 85610; 85730; 81001; 87040; 87086; 71046; G0378 ×2; J1956 ×2

== ENCOUNTER 2021-06-11 02:15 | Emergency (ER) | payer MEDICARE, BC ==
[2021-06-11 02:22] VITALS: BP 155/76; PULSE 56; RESP 20; TEMP 98
[2021-06-11] MEDS ORDERED: LIDOCAINE 1% INJ 10MG/ML (20 ML MDV) SQ ONE (02:50)
[2021-06-11] MEDS ORDERED: DIPH,PERTUS(ACELL)TETVAC-LF 0.5 ML VIAL IM ONE (02:50)
--- NOTE | 2021-06-11 02:50 | ED ---
Fall HPI - General Chief Complaint: Fall Stated Complaint: Fall, left arm lac Time Seen by Provider: 06/11/21 02:28 Source: patient Mode of arrival: ambulatory - History of Present Illness Initial Comments: Patient is an 89-year-old man who presents with complaint that he has lacerations to his left arm that have continued to bleed. He states that he was walking through his home and lost his balance and fell. He states that his left elbow struck a stereo cabinets, raking glass. Patient denies any foreign body sensation. Denies other injury. He has full range of motion and no weakness. Patient declined x-ray. Does not recall when his last tetanus shot was. Declined analgesia. Complaint: fall -: minutes(s) Fall From: standing When Fall Occurred: 1 hour [employer] Fall Witnessed: yes, by family Place Fall Occurred: home Loss of Consciousness: none Prolonged Down Time?: no Symptoms Prior to Fall: none Location - Extremities: Left: Elbow Severity: mild Quality: sharp Context: tripped/slipped - Related Data Home Medications Medication Instructions Recorded Confirmed Aspirin EC [Ecotrin Low Dose] 81 mg PO DAILY 10/05/15 07/30/20 Cyanocobalamin [Vitamin B-12] 500 mcg PO DAILY 07/30/20 07/30/20 Levothyroxine Sodium [Synthroid] 50 mcg PO DAILY 07/30/20 07/30/20 Metoprolol Succinate [Toprol XL] 25 mg PO BID 07/30/20 07/30/20 Ondansetron Odt [Zofran Odt] 4 mg PO Q6H PRN 07/30/20 07/30/20 Simvastatin [Zocor] 40 mg PO HS 07/30/20 07/30/20 Vit C/E/Zn/Coppr/Lutein/Zeaxan 1 cap PO BID 07/30/20 07/30/20 [Preservision Areds 2 Softgel] Previous Rx's Medication Instructions Recorded Cefuroxime Axetil [Ceftin] 500 mg PO BID 3 Days #6 tab 07/31/20 Allergies Allergy/AdvReac Type Severity Reaction Status Date / Time No Known Allergies Allergy Verified 06/11/21 02:20 Review of Systems ROS Statement: Those systems with pertinent positive or pertinent negative responses have been documented in the HPI. ROS Other: All systems not noted in ROS Statement are negative. Constitutional: Denies: fever, chills Respiratory: Denies: dyspnea Cardiovascular: Denies: chest pain, palpitations Skin: Reports: as per HPI, other (Lacerations) Neurological: Denies: weakness, numbness Hematological/Lymphatic: Denies: easy bleeding Past Medical History Past Medical History: Hyperlipidemia, Hypertension, Osteoarthritis (OA), Prostate Disorder, Thyroid Disorder Additional Past Medical History / Comment(s): straight cath's self 3-4 times a day for last 3-4 years secondary to urethral stricture. 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 the following surgeries were from the previous documented history from 2014, but the patient denies: throat hernia repair, bilateral carotid surgery, colonoscopy Past Anesthesia/Blood Transfusion Reactions: No Reported Reaction Past Psychological History: No Psychological Hx Reported Smoking Status: Former smoker Past Alcohol Use History: Rare Past Drug Use History: None Reported - Past Family History Father Family Medical History: No Reported History Mother Family Medical History: No Reported History Brother(s) Family Medical History: Coronary Artery Disease (CAD) Sister(s) Family Medical History: No Reported History General Exam Limitations: no limitations General appearance: alert, in no apparent distress Head exam: Present: atraumatic, normocephalic Respiratory exam: Present: normal lung sounds bilaterally. Absent: respiratory distress, wheezes, rales, rhonchi, stridor Cardiovascular Exam: Present: regular rate, normal rhythm, normal heart sounds Neurological exam: Absent: motor sensory deficit Skin exam: Present: warm, dry, normal color, other (Patient has 2 lacerations to the left elbow area. There is 1 to the lateral aspect of the arm approximately 2 cm in length. There is 1 near the olecranon, approximately 3 cm in length.) Course Vital Signs 06/11/21 02:20 Temperature 98.0 F Pulse Rate 56 L Respiratory 20 Rate Blood Pressure 155/76 O2 Sat by Pulse 99 Oximetry Procedures - Laceration Laceration #1 Consent Obtained: verbal consent Indication: laceration Site: upper extremity Size (cm): 2 Description: linear Depth: simple, single layer Anesthetic Used: lidocaine 1% Anesthesia Technique: local infiltration Type of Sutures: nylon Size of Sutures: 4-0 Number of Sutures: 2 Technique: simple, interrupted Patient Tolerated Procedure: well, no complications Laceration #2 Consent Obtained: verbal consent Indication: laceration Site: upper extremity Size (cm): 3 Description: linear Depth: simple, single layer Anesthetic Used: lidocaine 1% Anesthesia Technique: local infiltration Type of Sutures: nylon Size of Sutures: 4-0 Number of Sutures: 3 Technique: simple, interrupted Patient Tolerated Procedure: well, no complications Disposition Clinical Impression: Fall, Laceration Disposition: HOME SELF-CARE Condition: Good Instructions (If sedation given, give patient instructions): Laceration (ED), Fall Prevention for Older Adults (ED) Is patient prescribed a controlled substance at d/c from ED?: No Referrals: Yon Kruger DO [Primary Care Provider] - 1-2 days
== END 2021-06-11 04:14 | disposition home or self-care (01) ==
LOC: EC 02:15
DX: S51.012A Laceration without foreign body of left elbow, initial encounter (principal); I10 Essential (primary) hypertension; E78.5 Hyperlipidemia, unspecified; M19.90 Unspecified osteoarthritis, unspecified site; Z79.82 Long term (current) use of aspirin; Z79.890 Hormone replacement therapy; Z79.899 Other long term (current) drug therapy; Z87.891 Personal history of nicotine dependence; Z82.49 Family history of ischemic heart disease and other diseases of the circulatory system; W01.110A Fall on same level from slipping, tripping and stumbling with subsequent striking against sharp glass, initial encounter; Y92.009 Unspecified place in unspecified non-institutional (private) residence as the place of occurrence of the external cause; Y93.01 Activity, walking, marching and hiking
CPT/HCPCS: 90715; 12002; 90471; 99283; J2001

== ENCOUNTER 2021-06-18 05:48 | Emergency (ER) | payer MEDICARE, BC ==
[2021-06-18] MEDS ORDERED: CEPHALEXIN 500MG STARTER PACK 4 CAP BTL PO STA (06:20)
--- NOTE | 2021-06-18 06:33 | ED ---
General Adult HPI - General Chief complaint: Skin/Abscess/Foreign Body Stated complaint: redness around stitches Time Seen by Provider: 06/18/21 06:04 Source: patient, family, RN notes reviewed Mode of arrival: ambulatory Limitations: no limitations - History of Present Illness Initial comments: 89-year-old male presents to the emergency room for a chief complaint of arm swelling. Patient states that he had 2 lacerations of the left forearm from 1 week ago when he fell. Patient states he broke glass when he fell and it cut him. Patient states that he associated the stitches out but over the past couple days noticed that the left arm was starting to swell and is hot and red. Patient is concerned that there is infection. Tetanus was updated on last visit.Patient has no other complaints at this time including shortness of breath, chest pain, abdominal pain, nausea or vomiting, headache, or visual changes. - Related Data Home Medications Medication Instructions Recorded Confirmed Aspirin EC [Ecotrin Low Dose] 81 mg PO DAILY 10/05/15 07/30/20 Cyanocobalamin [Vitamin B-12] 500 mcg PO DAILY 07/30/20 07/30/20 Levothyroxine Sodium [Synthroid] 50 mcg PO DAILY 07/30/20 07/30/20 Metoprolol Succinate [Toprol XL] 25 mg PO BID 07/30/20 07/30/20 Ondansetron Odt [Zofran Odt] 4 mg PO Q6H PRN 07/30/20 07/30/20 Simvastatin [Zocor] 40 mg PO HS 07/30/20 07/30/20 Vit C/E/Zn/Coppr/Lutein/Zeaxan 1 cap PO BID 07/30/20 07/30/20 [Preservision Areds 2 Softgel] Previous Rx's Medication Instructions Recorded Cefuroxime Axetil [Ceftin] 500 mg PO BID 3 Days #6 tab 07/31/20 Cephalexin [Keflex] 500 mg PO Q6HR 10 Days #40 cap 06/18/21 Allergies Allergy/AdvReac Type Severity Reaction Status Date / Time No Known Allergies Allergy Verified 06/18/21 05:54 Review of Systems ROS Statement: Those systems with pertinent positive or pertinent negative responses have been documented in the HPI. ROS Other: All systems not noted in ROS Statement are negative. Past Medical History Past Medical History: Hyperlipidemia, Hypertension, Osteoarthritis (OA), Prostate Disorder, Thyroid Disorder Additional Past Medical History / Comment(s): straight cath's self 3-4 times a day for last 3-4 years secondary to urethral stricture. 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 the following surgeries were from the previous documented history from 2014, but the patient denies: throat hernia repair, bilateral carotid surgery, colonoscopy Past Anesthesia/Blood Transfusion Reactions: No Reported Reaction Past Psychological History: No Psychological Hx Reported Smoking Status: Former smoker Past Alcohol Use History: Rare Past Drug Use History: None Reported - Past Family History Father Family Medical History: No Reported History Mother Family Medical History: No Reported History Brother(s) Family Medical History: Coronary Artery Disease (CAD) Sister(s) Family Medical History: No Reported History General Exam Limitations: no limitations General appearance: alert, in no apparent distress Head exam: Present: atraumatic, normocephalic, normal inspection Eye exam: Present: normal appearance, PERRL, EOMI. Absent: scleral icterus, conjunctival injection, periorbital swelling ENT exam: Present: normal exam, mucous membranes moist Neck exam: Present: normal inspection, full ROM. Absent: tenderness Respiratory exam: Present: normal lung sounds bilaterally. Absent: respiratory distress, wheezes Cardiovascular Exam: Present: regular rate, normal rhythm, normal heart sounds GI/Abdominal exam: Present: soft, normal bowel sounds. Absent: distended, tenderness Extremities exam: Present: normal capillary refill (cap refill < 2 seconds, radial pulse 2+), joint swelling (mild erythema and edema of the left forearm), other (small lacerations of the forearm) Course Vital Signs 06/18/21 05:48 Temperature 98.7 F Pulse Rate 73 Respiratory 22 Rate Blood Pressure 138/73 O2 Sat by Pulse 97 Oximetry Medical Decision Making - Medical Decision Making Vitals are stable. There is mild erythema and edema of the left forearm. Stitches are in place. There is no purulent drainage. Full range of motion of the left forearm including the elbow and wrist. X-ray was obtained which showed no foreign bodies. Patient was started on Keflex. I discussed return parameters were patient including fevers, spreading redness, or any other worsening symptoms. Disposition Clinical Impression: Cellulitis Disposition: HOME SELF-CARE Condition: Good Instructions (If sedation given, give patient instructions): Cellulitis (ED) Additional Instructions: Take antibiotic as directed. Monitor for worsening symptoms. If the redness or swelling is spreading return to the emergency room. If you develop fevers or any other worsening symptoms return to the emergency room. Otherwise follow-up with your primary care doctor on Sunday to make sure symptoms are improving. Prescriptions: Cephalexin [Keflex] 500 mg PO Q6HR 10 Days #40 cap Is patient prescribed a controlled substance at d/c from ED?: No Referrals: Yon Kruger DO [Primary Care Provider] - 1-2 days Time of Disposition: 06:51
--- NOTE | 2021-06-18 06:54 | XR ---
Left forearm. HISTORY: Trauma. COMPARISON: None. TECHNIQUE: 2 views of left forearm were obtained. FINDINGS: There is no fracture or focal intraosseous abnormality. There is no radiopaque foreign body. Soft tis sues are unremarkable. IMPRESSION: No significant abnormality seen.
[2021-06-18 07:43] VITALS: BP 128/74; PULSE 68; RESP 16; TEMP 98.1
== END 2021-06-18 07:42 | disposition home or self-care (01) ==
LOC: EC 05:48
DX: L03.114 Cellulitis of left upper limb (principal); I10 Essential (primary) hypertension; E78.5 Hyperlipidemia, unspecified; M19.90 Unspecified osteoarthritis, unspecified site; Z79.82 Long term (current) use of aspirin; Z79.890 Hormone replacement therapy; Z79.899 Other long term (current) drug therapy; Z87.891 Personal history of nicotine dependence; Z82.49 Family history of ischemic heart disease and other diseases of the circulatory system
CPT/HCPCS: 99283